=== PATIENT | male | born 1990 | race Caucasian/White ===

== ENCOUNTER 2020-10-28 23:08 | Emergency (ER) | payer SELFPAY ==
[~2020-10-28] VITALS: Ht 167.6 cm; Wt 83.9 kg
[2020-10-29] MEDS ORDERED: CEPHALEXIN500 M1 PO (01:38)
[2020-10-29] MEDS ORDERED: SEPTDS PO (01:38)
== END 2020-10-29 01:59 | disposition home or self-care (01) ==
LOC: ED 23:08
DX: L02.31 Cutaneous abscess of buttock (principal)